=== PATIENT | male | born 1975 | race Caucasian/White ===

== ENCOUNTER 2018-01-25 05:54 | Day surgery (SDC) | payer BC ==
--- NOTE | 2018-01-24 18:29 | Pre-Procedure Note/Attestation ---
Pre-Procedure Note/Attestation Complete Prior to Procedure Procedure Narrative: Bilateral tonsillectomy Indications for Procedure Pre-Operative Diagnosis: Chronically enlarged right tonsil-left also gets infected from time to time. Attestation I attest that I discussed the nature of the procedure; its benefits; risks and complications; and alternatives (and the risks and benefits of such alternatives ), prior to the procedure, with the patient (or the patient's legal workforce services representative). I attest that, if there was a reasonable possibility of needing a blood transfusion, the patient (or the patient's legal workforce services representative) was given the [facility] standardized written summary, pursuant to the Anoop Kelly Blood Safety Act ([place] Health and Safety Code # 1645, as amended). I attest that I re-evaluated the patient just prior to the surgery and that there has been no change in the patient's H&P, by me , also H/P by Dr. Huntley his outside PMD was faxed last week to hospital. GWEN JIMENEZ Jan 24, 2018 18:29
--- NOTE | 2018-01-24 18:30 | Brief Operative Note ---
Immediate Post Operative Note Operative Note Chief Complaint: Chronic tonsillitis Pre-op Diagnosis: Chronically enlarged right tonsil-left also gets infected from time to time. Procedure: Bilateral tonsillectomy Post-op Diagnosis: same as pre-op Surgeon: Gwen Jimenez [employer] Assembler: none Additional Surgeons: none Anesthesiologist: Dr. Santos Anesthesia: general Specimen: yes - Right and left tonsil-labelled separately Complications: none Condition: stable Fluids: D5LR 1100 cc Estimated Blood Loss: volume - 50 cc Drains: none Packing: none Implant(s) used?: No GWEN JIMENEZ Jan 24, 2018 18:30
--- NOTE | 2018-01-24 18:35 | Discharge Instructions ---
Discharge Instructions Discharge Instructions Follow up with: 02/01/18 11 AM Call MD/Return to Hospital if: bleeding, airway obstruction Resume Normal Activity?: No Activity: light activity Pneumonia Vaccine: pt refused vaccine Influenza Vaccine (May to Oct): pt refused vaccine Follow Up Orders At pre op visit in my office 01/12/18 fwe reviewed and pre and post op printed instructions as well as Rx for Rosebud and Amoxicillin. Return to Work/School on: Feb 07, 2018 For Surgical Patients Contact your physician for: bleeding, pain, tenderness, redness, swelling, yellowish discharge in the op. site For Congestive Heart Failure Reminder Report to your physician any weight gain of 5 pounds or more in one week. GWEN JIMENEZ Jan 24, 2018 18:35
[2018-01-25] VITALS (14 sets, daily range): BP systolic 117–147; BP diastolic 74–95
[~2018-01-25] VITALS: Ht 182.9 cm; Wt 86.2 kg
--- NOTE | 2018-01-25 01:00 | Pre-op HX & Phy Repo 2 SIG ---
DATE OF ADMISSION: 01/25/2018 NOTE: POOR AUDIO DATE OF SURGERY: 01/25/2018 HISTORY OF PRESENT ILLNESS: The patient is a 42-year-old male, who is being admitted as an outpatient for bilateral tonsillectomy, primarily hypertrophied right tonsil that has not gone down and the left tonsil it goes up and down with infections. ALLERGIES: He is allergic to tetracycline. He has a moderate rash. SOCIAL HISTORY: Remarkable for not being a smoker, single, no children. Denies alcohol and drugs. He is a personal computer specialist. PHYSICAL EXAMINATION: VITAL SIGNS: He is 72 inches, 185 pounds. BMI 25.09. Blood pressure 120/80, temperature 98.6, heart rate 71, and respiratory rate 13. HEENT: Head, normocephalic. Eyes, PERRLA, EOMI. Lips, tongue, pharynx, and neck normal. Tonsil, 3.5+ on the right and 2+ on the left, neither are red. Nose, normal mucosa. Septum straight. HEART: Normal S1 and S2. No S3 or S4. No murmur, bruit, gallop, or rub. ABDOMEN: Soft and nontender. Normoactive bowel sounds. EXTREMITIES: Grossly normal. GENITOURINARY: Not done. Please note that his primary care physician, Dr. Huntley, also did a History and Physical, but he is not on staff, so I will co-sign that as well. ASSESSMENT: Hypertrophied tonsils. PLAN: The patient is stable for outpatient tonsillectomy tomorrow. No laboratories are necessary as he has no other medical issues. Elfego Ramos M.D. DR: TANO JOB#: [id number] CC: PREET
[~2018-01-25 05:54] MED LIST: AMOXICILLIN500 MG ORAL; DIOVAN160 MG ORAL; NORCO 5-325 TA1 EACH ORAL
[2018-01-25] MEDS ORDERED: Bupivacaine 0.5% Inj 30 ml vial INJ ONE ×2 (06:40→06:41)
[2018-01-25] MEDS ORDERED: Cocaine HCl 4% 4ml vial TOPIC ONE (06:40)
[2018-01-25] MEDS ORDERED: Lidocaine 1% 10mg/ml/Epi 0.005mg/ml 30ml vial INJ ONE (06:40)
[2018-01-25] MEDS ORDERED: Dexamethasone 4mg/ml vial ONE (06:48)
[2018-01-25] MEDS ORDERED: Propofol 200mg/20ml IV ONE ×2 (06:48→08:13)
[2018-01-25] MEDS ORDERED: Lidocaine 1% MPF 10mg/ml 5ml ONE (06:48)
[2018-01-25] MEDS ORDERED: fentaNYL 100 mcg/2 mL IV ONE (06:48)
[2018-01-25] MEDS ORDERED: Metoclopramide 10mg/2ml Inj ONE (06:48)
[2018-01-25] MEDS ORDERED: Midazolam 2mg/2ml Inj ONE (06:49)
[2018-01-25] MEDS ORDERED: Thrombin 5000 units TOPIC ONE (06:53)
[2018-01-25] MEDS ORDERED: Dyna-Hex 2% Top Sol 2oz TOPIC ONE (06:54)
[2018-01-25] MEDS ORDERED: Succinylcholine 20mg/ml 10ml vial ONE (07:10)
[2018-01-25] MEDS ORDERED: Zemuron 50mg/5ml Inj IV ONE (07:10)
[2018-01-25] MEDS ORDERED: ceFAZolin sod 1 GM in D5W 55 ML IV ONE (07:15)
[2018-01-25] MEDS ORDERED: LR 1000ml ONE (07:30)
[2018-01-25] MEDS ORDERED: NS Irrig 1000ml ONE (07:30)
[2018-01-25] MEDS ORDERED: Sterile Water Irrig 1000ml IRRIG ONE (07:30)
[2018-01-25] MEDS ORDERED: LR 1000ml 1,000 ML IVLG SCH (08:06)
--- NOTE | 2018-01-25 08:06 | Anethesia Preoperative Eval ---
Anesthesia Pre-op PMH/ROS General Date of Evaluation: Jan 25, 2018 Time of Evaluation: 07:15 Anesthesiologist: ASA Score: ASA 2 Mallampati Score Class I : Soft palate, uvula, fauces, pillars visible Class II: Soft palate, uvula, fauces visible Class III: Soft palate, base of uvula visible Class IV: Only hard plate visible Mallampati Classification: Class I Surgeon: nikki Diagnosis: tonsillitis Surgical Procedure: reece tonsillectomy Anesthesia History: none Family History: no anesthesia problems Allergies: Coded Allergies: TETRACYCLINE (Verified Allergy, Intermediate, rash, 01/24/18) Past Medical History Cardiovascular: Reports: HTN; Denies: CAD, [place], valve dz, arrhythmia, other Pulmonary: Denies: asthma, COPD, LUISA, other Gastrointestinal/Genitourinary: Denies: GERD, CRI, ESRD, other Neurologic/Psychiatric: Denies: dementia, CVA, depression/anxiety, TIA, other Endocrine: Denies: DM, hypothyroidism, steroids, other HEENT: Denies: cataract (L), cataract (R), glaucoma, [place] (L), [place] (R), other Hematology/Immune: Denies: anemia, DVT, bleeding disorder, other Musculoskeletal/Integumentary: Denies: OA, RA, DJD, DDD, edema, other Anesthesia Pre-op Phys. Exam Physician Exam Last Vital Signs Date Time Temp Pulse Resp B/P (MAP) Pulse Ox O2 Delivery O2 Flow Rate FiO2 01/25/18 06:40 97.1 79 18 117/74 98 Room Air 97.1 Constitutional: NAD Cardiovascular: RRR Respiratory: CTA Gastrointestinal: S/NT/ND Airway Exam Mallampati Score: Class II MO: full ROM: full Teeth: intact Dentures: no upper, no lower Anesthesia Pre-op A/P Risk Assessment & Plan Assessment: asa 2, okay to proceed Plan: ETGA Pre-Antibiotics Drug: ancef 1 gram Given Within 1 Hr of Incision: Yes Time Given: 07:45 Keri Santos M.D. Jan 25, 2018 08:06
[2018-01-25] MEDS ORDERED: Neostigmine 1mg/ml 10ml Inj ONE (08:12)
[2018-01-25] MEDS ORDERED: Glycopyrrolate 0.2mg/ml 1ml Vial ONE (08:12)
[2018-01-25] MEDS ORDERED: Hydromorphone 0.5mg/0.5ml inj IVP PRN (08:15)
[2018-01-25] MEDS ORDERED: fentaNYL 100 mcg/2 mL IV PRN (08:15)
[2018-01-25] MEDS ORDERED: DiphenhydrAMINE 50mg/ml Inj IVP PRN (08:15)
[2018-01-25] MEDS ORDERED: Labetalol 5mg/ml 20ml vial IV PRN (08:15)
[2018-01-25] MEDS ORDERED: Norco 5mg/325mg tab ORAL PRN (08:30)
[2018-01-25] MEDS ORDERED: Metoclopramide 10mg/2ml Inj IVP PRN (08:30)
--- NOTE | 2018-01-25 08:55 | Immediate Post-Op Evaluation ---
Immediate Post-Op Evalulation Immediate Post-Op Evalulation Procedure: reece tonsillectomy Date of Evaluation: Jan 25, 2018 Time of Evaluation: 08:43 IV Fluids: LR 1200ml Blood Products: 0 Estimated Blood Loss: 50ml Urinary Output: 0 Blood Pressure Systolic: 138 Blood Pressure Diastolic: 95 Pulse Rate: 70 Respiratory Rate: 16 O2 Sat by Pulse Oximetry: 98 Temperature (Fahrenheit): 97 Pain Score (1-10): 0 Nausea: No Vomiting: No Complications none Patient Status: awake, patent, none Hydration Status: adequate Drug: ancef 1 gram Given Within 1 Hr of Incision: Yes Time Given: 07:45 Keri Santos M.D. Jan 25, 2018 08:55
--- NOTE | 2018-01-25 10:01 | 48 Hour Post Anesthesia Eval ---
Post Anesthesia Evaluation Procedure: reece tonsillectomy Date of Evaluation: Jan 25, 2018 Time of Evaluation: 09:35 Blood Pressure Systolic: 134 0: 94 Pulse Rate: 71 Respiratory Rate: 14 Temperature (Fahrenheit): 97 O2 Sat by Pulse Oximetry: 99 Airway: patent Nausea: No Vomiting: No Pain Intensity: 0 Hydration Status: adequate Mental Status/LOC: patient returned to baseline Post-Anesthesia Complications: none Follow-up care needed: ready to discharge Keri Santos M.D. Jan 25, 2018 10:01
--- NOTE | 2018-01-25 18:45 | Operative Note - Dictated ---
DATE OF OPERATION: 01/25/2018 SURGEON: Elfego Ramos M.D. OPERATIONS PLANT ATTENDANT: None. ANESTHESIOLOGIST: Keri Santos M.D. ANESTHESIA: Oral endotracheal anesthesia as well as a 7 mL of 1% lidocaine 1:100,000 epinephrine at the beginning of the case and Sensorcaine 7 mL without epinephrine at the end of the case. INDICATION FOR SURGERY: The patient with a persistently enlarged right tonsil and the left tonsil moving up and down. 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 POSTOPERATIVE DIAGNOSIS: Appears to be infectious bilaterally, although pathology will determine that. FINDINGS: As above. PROCEDURE: Bilateral tonsillectomy. TECHNIQUE: The patient was prepped and draped in the usual manner. Time-out was performed. All agreed as to the equipment and procedure to be done. DESCRIPTION OF PROCEDURE: After intubation, the patient had a McIvor mouth gag placed and injected with the aforementioned lidocaine and epinephrine mixture. I then addressed the right tonsil first. A setting at 12 on the Bovie from an anterior superior to posterior inferior direction dissected the tonsil without difficulty. I then turned my attention to the left tonsil and it was more was ,pre scarred in then I thought it would be. I did need to put a stitch through the middle tonsillar bed to stop a venous bleeder. It did not respond to electrocautery. It was removed in the same manner, anterior superior to posterior inferior direction with electrocautery set at 12. McIvor mouth gag was put down from 1 minute to release tension on blood vessels to unmask any bleeding that may happen. McIvor mouth gag was then put back after a minute. There was no bleeding. Sensorcaine was injected into the tonsillar pillars and bed. McIvor mouth gag was then put down again for another minute and put back up. Thrombin was placed in either tonsillar bed. The patient was extubated. Sponge and needle count was correct. ESTIMATED BLOOD LOSS: 50 mL. COUNTS: None. DRAINS: None. Teeth, which had been examined at the beginning of the case were unchanged without any evidence of damage at the end of the case. Elfego Ramos M.D. DR: TANO JOB#: [id number] CC: PREET
== END 2018-01-25 10:55 | disposition home or self-care (01) ==
LOC: SUR 05:54
DX: J35.01 Chronic tonsillitis (principal); Z88.8 Allergy status to other drugs, medicaments and biological substances; I10 Essential (primary) hypertension
CPT/HCPCS: 42826; J0330; J0690; J1100; J2250; J2405; J2704; J2710; J2765; J3010; J3490; J7120; S0028; 94003; 94150